=== PATIENT | male | born 1995 | race African-American/Black ===

== ENCOUNTER 2025-02-06 21:09 | Emergency (ER) | payer OTHER ==
[~2025-02-06] VITALS: Ht 177.8 cm; Wt 81.8 kg
[2025-02-06 21:29] VITALS: BP 129/73; PULSE 63; RESP 16; TEMP 98.5; O2SAT 99
== END 2025-02-07 00:25 | disposition left against medical advice (07) ==
LOC: EMS 21:09
DX: R45.851 Suicidal ideations (principal); Z53.21 Procedure and treatment not carried out due to patient leaving prior to being seen by health care provider